=== PATIENT | female | born 1960 | race American Indian/Alaskan Native ===

== ENCOUNTER 2017-01-24 08:24 | Emergency (ER) | payer MEDICAID ==
[2017-01-24 08:34] VITALS: BP 127/92
--- NOTE | 2017-01-24 08:41 | Emergency Department Report ---
ED Back Pain/Injury HPI - General Chief Complaint: Back Pain/Injury Stated Complaint: BACK PAIN Time Seen by Provider: 01/24/17 08:40 Source: patient Limitations: No Limitations - History of Present Illness Initial Comments: Patient here for chronic back pain states she moved from [place] several months ago and still was not found a doctor. Patient also needs a refill of an anastrozole for her breast cancer treatment. Patient denies any nausea vomiting diarrhea, fever, chills, abdominal pain, dysuria, abnormal vaginal discharge, or new trauma. Patient also denies saddle paresthesia, bowel or bladder irregularities, or lower extremity weakness or paresthesias. -: Gradual Similar Symptoms Previously: No Radiation: right leg Severity: moderate Severity scale (0 -10): 6 Quality: aching Consistency: intermittent Context: bending - Related Data Previous Rx's Medication Instructions Recorded Last Taken Type Anastrozole (Nf) [Arimidex (Nf)] 1 mg PO DAILY #20 tablet 01/24/17 Unknown Rx Methocarbamol [Robaxin TAB] 750 mg PO Q8H PRN #20 tablet 01/24/17 Unknown Rx traMADol [Ultram 50 MG tab] 50 mg PO Q4HR PRN #20 tablet 01/24/17 Unknown Rx Allergies Allergy/AdvReac Type Severity Reaction Status Date / Time No Known Allergies Allergy Unverified 01/24/17 08:34 ED Review of Systems ROS: Stated complaint: BACK PAIN Other details as noted in HPI Constitutional: denies: chills, fever Eyes: denies: eye pain, eye discharge, vision change ENT: denies: ear pain, throat pain Respiratory: denies: cough, shortness of breath, wheezing Cardiovascular: denies: chest pain, palpitations Endocrine: no symptoms reported Gastrointestinal: denies: abdominal pain, nausea, diarrhea Genitourinary: denies: urgency, dysuria, discharge Musculoskeletal: back pain. denies: joint swelling, arthralgia Skin: denies: rash, lesions Neurological: denies: headache, weakness, paresthesias Psychiatric: denies: anxiety, depression Hematological/Lymphatic: denies: easy bleeding, easy bruising ED Past Medical Hx - Past Medical History Previous Medical History?: Yes Hx of Cancer: Yes (Breast) Additional medical history: Chronic Back Pain - Surgical History Past Surgical History?: Yes Additional Surgical History: [address] Bladder. 2013 Right Knee,. 2014 Back, Breast, Kidney Sx. 2015 Right Knee - Social History Smoking Status: Never Smoker Substance Use Type: None - Medications Home Medications: Home Medications Medication Instructions Recorded Confirmed Last Taken Type Anastrozole (Nf) [Arimidex (Nf)] 1 mg PO DAILY #20 tablet 01/24/17 Unknown Rx Methocarbamol [Robaxin TAB] 750 mg PO Q8H PRN #20 tablet 01/24/17 Unknown Rx traMADol [Ultram 50 MG tab] 50 mg PO Q4HR PRN #20 tablet 01/24/17 Unknown Rx ED Physical Exam - General Limitations: No Limitations General appearance: alert, in no apparent distress - Head Head exam: Present: atraumatic, normocephalic - Eye Eye exam: Present: normal appearance, PERRL, EOMI - ENT ENT exam: Present: mucous membranes moist - Neck Neck exam: Present: normal inspection - Respiratory Respiratory exam: Present: normal lung sounds bilaterally. Absent: respiratory distress - Cardiovascular Cardiovascular Exam: Present: regular rate, normal rhythm. Absent: systolic murmur, diastolic murmur, rubs, gallop - GI/Abdominal GI/Abdominal exam: Present: soft, normal bowel sounds - Extremities Exam Extremities exam: Present: normal inspection, full ROM, normal capillary refill. Absent: pedal edema - Back Exam Back exam: Present: normal inspection. Absent: CVA tenderness (R), CVA tenderness (L) - Neurological Exam Neurological exam: Present: alert, oriented X3, CN II-XII intact, normal gait - Psychiatric Psychiatric exam: Present: normal affect, normal mood - Skin Skin exam: Present: warm, dry, intact, normal color. Absent: rash ED Course Vital Signs 01/24/17 08:27 Temperature 98.3 F Pulse Rate 71 Respiratory 18 Rate Blood Pressure 127/92 O2 Sat by Pulse 100 Oximetry Critical care attestation.: If time is entered above; I have spent that time in minutes in the direct care of this critically ill patient, excluding procedure time. ED Disposition Clinical Impression: Medication refill, Chronic pain Disposition: DISCHARGED TO HOME OR SELFCARE Is pt being admited?: No Condition: Stable Instructions: Chronic Back Pain (ED) Prescriptions: Anastrozole (Nf) [Arimidex (Nf)] 1 mg PO DAILY #20 tablet Methocarbamol [Robaxin TAB] 750 mg PO Q8H PRN #20 tablet PRN Reason: Pain traMADol [Ultram 50 MG tab] 50 mg PO Q4HR PRN #20 tablet PRN Reason: Pain Referrals: LEONOR RODRIGUEZ MD [Staff Physician] - 3-5 Days
[2017-01-24] MEDS ORDERED: PERCOCET 5/325 PO ONE (08:47)
== END 2017-01-24 09:44 | disposition home or self-care (01) ==
LOC: ED 08:24
DX: G89.29 Other chronic pain (principal); M54.9 Dorsalgia, unspecified; C50.919 Malignant neoplasm of unspecified site of unspecified female breast
CPT/HCPCS: 99282

== ENCOUNTER 2017-03-09 08:32 | Outpatient (CLI) | payer MEDICAID ==
[2017-03-09] MEDS ORDERED: NACL ONE (09:53)
--- NOTE | 2017-03-09 11:10 | Cat Scan Report ---
CT scan of abdomen with IV contrast: History: Breast cancer, weight loss. Findings: 5 mm circumscribed hypodensity right lobe liver probably cyst. The gallbladder is not visualized. Pancreas and spleen appears normal. Normal adrenals.1.4 cm circumscribed hypodensity hilum of right kidney probably a cyst. Small exophytic cyst right kidney. No evidence of adenopathy. Normal aorta. Gaseous colon with moderate volume stool in colon. Impression: Circumscribed hypodensity liver and right kidney probably cyst. 4 mm exophytic cyst right kidney.
--- NOTE | 2017-03-09 11:12 | Cat Scan Report ---
CT scan of chest with IV contrast: History: Breast cancer, weight loss. Findings: No endobronchial or mediastinal mass. No mediastinal, hilar or axillary adenopathy. Bilateral surgical clips in the axilla. No pleural or pericardial effusion. No discrete nodularity or consolidation of the lung parenchyma. Impression: No mediastinal mass. No lung mass. No adenopathy.
== END 2017-03-09 08:33 | disposition home or self-care (01) ==
LOC: CT 08:32
DX: N28.1 Cyst of kidney, acquired (principal); R63.4 Abnormal weight loss; Z85.3 Personal history of malignant neoplasm of breast
CPT/HCPCS: 71260; 74160; Q9967